=== PATIENT | female | born 1995 | race Caucasian/White ===

== ENCOUNTER 2022-03-25 15:31 | Day surgery (SDC) | payer BC, OTHER ==
[2022-03-25] MEDS ORDERED: hydrALAZINE 20 MG/ML VIAL SLOW IVP PRN (17:23)
[2022-03-25 17:59] VITALS: BMI 42.4
[2022-03-25] MEDS ORDERED: Lactated Ringer's 1,000 ML IV SCH (18:00)
[2022-03-25 18:38] LABS: #Eosinphils 0.1 10x3/uL (0.0-0.5); #Monocytes 0.4 10x3/uL (0.0-1.1); #Neutrophils 9.9 10x3/uL (1.5-8.4); %Basophils 0.2 % (0.0-2.0); %Eosinophils 0.6 % (0.0-6.0); %Lymphocytes 12.4 % (18.0-47.0); %Monocytes 3.4 % (0.0-10.0); %Neutrophils 82.8 % (40.0-75.0); Mean Corpuscular HGB CONC 32.7 g/dL (32.0-36.0); Mean Corpuscular Hemoglobin 27.9 pg (27.0-33.0); Mean Corpuscular Volume 85.5 fl (81.6-98.3); Mean Platelet Volume 10.3 fl (7.4-10.4); Platelet Count 190 10x3/uL (150-450); RBC Distribution Width 14.3 % (11.5-14.5); Red Blood Cell (RBC) Count 3.58 10x6/uL (3.90-5.03); White Blood Cell (WBC) Count 11.9 10x3/uL (3.5-10.5)
[2022-03-25 18:50] LABS: ALT (SGPT) 7 U/L (8-55); AST (SGOT) 10 U/L (5-34); Albumin 3.2 g/dL (3.5-5.0); Alkaline Phosphatase 105 U/L (40-110); Anion Gap 12 mmol/L (10-20); BUN (Urea Nitrogen) 6 mg/dL (7.0-18.7); Bilirubin, Total 0.4 mg/dL (0.2-1.2); Calc. Creatinine Clearance 223 mL/min (70-130); Calcium 8.8 mg/dL (7.8-10.44); Carbon Dioxide 22 mmol/L (22-29); Chloride 107 mmol/L (98-107); Estimated GFR 122; Globulin 2.9 g/dL (2.4-3.5); Glucose 143 mg/dL (70-105); Lipase 15 U/L (8-78); Potassium 3.6 mmol/L (3.5-5.1); Protein, Total 6.1 g/dL (6.0-8.3); Sodium 137 mmol/L (136-145)
[2022-03-25 19:31] LABS: Bilirubin Neg (Negative); Blood, Urine Negative (Negative); CAUTI Indications for Culture Pelvic or flank pain; Clarity Clear (Clear); Glucose, Urine (Dipstick) Normal (Negative); Ketone, Urine Negative (Negative); Leukocyte Negative (Negative); Nitrite Negative (Negative); Protein, Urine (Dipstick) Negative (Neg-Trace); Specific Gravity, Urine 1.005 (1.005-1.030); Urobilinogen Normal mg/dL (Less than 2)
[2022-03-25 19:33] LABS: Urine Culture Reflex No No
[2022-03-25 19:49] LABS: Bacteria/HPF Rare-Few HPF (None Seen); RBC/HPF 0-3 HPF (0-3); Squamous Epithelial 0-3 HPF (0-3); WBC/HPF 0-3 HPF (0-3)
== END 2022-03-25 20:55 | disposition home or self-care (01) ==
LOC: CSHLD/OP 15:31
PROVIDERS: ATTEND Obstetrics & Gynecology
DX: O26.893 Other specified pregnancy related conditions, third trimester (principal); R10.31 Right lower quadrant pain; R10.32 Left lower quadrant pain; O47.03 False labor before 37 completed weeks of gestation, third trimester; O99.891 Other specified diseases and conditions complicating pregnancy; R00.0 Tachycardia, unspecified; D72.829 Elevated white blood cell count, unspecified; Z3A.36 36 weeks gestation of pregnancy
CPT/HCPCS: 80053; 81001; 83690; 85025; 96360; 99283

== ENCOUNTER 2022-04-07 11:09 | Outpatient (CLI) | payer BC, OTHER ==
[2022-04-07 12:13] LABS: Hemoglobin 10.4 g/dL (12.0-15.5); Platelet Count 200 10x3/uL (150-450)
[2022-04-07 12:50] LABS: HBSAg Index 0.12 S/CO (0-0.99); Hep B Surf Ag Non-Reactive S/CO (NonReactive)
[2022-04-07 12:51] LABS: SARS-CoV-2 NAA Rapid Test Not Detected (NotDetected)
[2022-04-07 12:52] LABS: Syphilis Antibody Nonreactive (Nonreactive); Syphilis Antibody Index 0.03 S/CO (<1.00 Non-Reactive)
== END 2022-04-07 11:10 | disposition home or self-care (01) ==
LOC: CSHLAB 11:09
PROVIDERS: ATTEND Obstetrics & Gynecology
DX: Z01.812 Encounter for preprocedural laboratory examination (principal); Z20.822 Contact with and (suspected) exposure to COVID-19
CPT/HCPCS: 85014; 85018; 85049; 86780; 86850; 86900; 86901; 87340; U0002

== ENCOUNTER 2022-04-10 09:40 | Inpatient (IN) | payer OTHER ==
[2022-04-10] MEDS ORDERED: Famotidine/PF 20 mg/2ml Vial SLOW IVP PRN (10:43)
[2022-04-10] MEDS ORDERED: Acetaminophen 500 MG TAB PO PRN (10:43)
[2022-04-10] MEDS ORDERED: Promethazine HCl 25 MG/ML VIAL IM PRN ×2 (10:43→11:09)
[2022-04-10] MEDS ORDERED: Ondansetron PF 4 MG/2 ML Vial IVP PRN ×2 (10:43→11:09)
[2022-04-10] MEDS ORDERED: Bicitra 30 ML UDCUP PO PRN (10:43)
[2022-04-10] MEDS ORDERED: hydrALAZINE 20 MG/ML VIAL SLOW IVP PRN (10:43)
[2022-04-10] MEDS ORDERED: CEFAZOLIN 2 GM in Sodium Chloride 0.9% 100 ML IVPB SCH (10:45)
[2022-04-10 10:58] VITALS: BMI 44.7
[2022-04-10] MEDS ORDERED: Ondansetron HCl/PF 4 MG/2 ML Vial IVP PRN (11:09)
[2022-04-10] MEDS ORDERED: HYDROmorphone 2 MG/ML VIAL SLOW IVP PRN (11:09)
[2022-04-10] MEDS ORDERED: Fentanyl 100 MCG/2 ML VIAL SLOW IVP PRN (11:09)
[2022-04-10] MEDS ORDERED: Naloxone HCl 0.4 mg/ml Vial IVP PRN ×2 (11:09)
[2022-04-10] MEDS ORDERED: Meperidine HCl/PF 25 MG/ML VIAL SLOW IVP PRN (11:09)
[2022-04-10] MEDS ORDERED: diphenhydrAMINE 50 MG/ML VIAL IVP PRN (11:09)
[2022-04-10] MEDS ORDERED: Promethazine HCl 25 MG SUPP PR PRN (11:09)
[2022-04-10] MEDS ORDERED: Moisturizing Cream (Eucerin) 113 GM JAR TOP PRN (11:09)
[2022-04-10] MEDS ORDERED: Naloxone HCl 0.4 mg/ml Vial IV PRN (11:09)
[2022-04-10] MEDS ORDERED: Phenylephrine 10 MG/ML VIAL ONE (11:14)
[2022-04-10] MEDS ORDERED: Oxytocin 10 UNITS/ML VIAL ONE ×2 (11:14→12:58)
[2022-04-10] MEDS ORDERED: Fentanyl 100 MCG/2 ML VIAL ONE (11:14)
[2022-04-10] MEDS ORDERED: Ondansetron PF 4 MG/2 ML Vial ONE (11:14)
[2022-04-10] MEDS ORDERED: Morphine PF 10 MG/10 ML VIAL ONE (11:14)
[2022-04-10] MEDS ORDERED: Dexamethasone 4 mg/ml Vial ONE (11:14)
[2022-04-10] MEDS ORDERED: Ketorolac Tromethamine 30 MG/ML VIAL IVP SCH (11:15)
[2022-04-10] MEDS ORDERED: Communication Order-Pharmacy FS SCH (11:15)
[2022-04-10] MEDS ORDERED: Lidocaine 1% (PF) 30 ML VIAL ONE (12:54)
[2022-04-10] MEDS ORDERED: Methylergonovine 0.2 MG/ML VIAL IM PRN (16:21)
[2022-04-10] MEDS ORDERED: diphenhydrAMINE 25 MG CAP PO PRN (16:21)
[2022-04-10] MEDS ORDERED: NS w/ Oxytocin 30 units 500 ML IV SCH (16:21)
[2022-04-10] MEDS ORDERED: Boostrix 0.5 ML (Tdap) VIAL (>/=7 yrs of age) IM ONE (16:21)
[2022-04-10] MEDS ORDERED: Bisacodyl 10 MG SUPP PR PRN (16:21)
[2022-04-10] MEDS ORDERED: Acetaminophen 325 MG TAB PO PRN (16:21)
[2022-04-10] MEDS ORDERED: Misoprostol 200 MCG TAB PR PRN (16:21)
[2022-04-10] MEDS: Ketorolac Tromethamine 30 MG/ML VIAL IVP PRN (17:09)
[2022-04-10] MEDS: Docusate 100 MG CAP PO SCH (21:32)
[2022-04-11] MEDS: Ketorolac Tromethamine 30 MG/ML VIAL IVP PRN ×2 (00:23→08:13)
[2022-04-11 05:07] LABS: Hemoglobin 8.7 g/dL (12.0-15.5); Mean Corpuscular HGB CONC 32.3 g/dL (32.0-36.0); Mean Corpuscular Hemoglobin 26.6 pg (27.0-33.0); Mean Corpuscular Volume 82.3 fl (81.6-98.3); Mean Platelet Volume 10.3 fl (7.4-10.4); Platelet Count 171 10x3/uL (150-450); RBC Distribution Width 14.5 % (11.5-14.5); Red Blood Cell (RBC) Count 3.27 10x6/uL (3.90-5.03); White Blood Cell (WBC) Count 13.1 10x3/uL (3.5-10.5)
[2022-04-11] MEDS: HYDROcodone/Acetaminophen 5/325 mg Tablet PO PRN ×4 (08:12→21:41)
[2022-04-11] MEDS: Docusate 100 MG CAP PO SCH ×2 (08:12→21:41)
[2022-04-11] MEDS: Prenatal Vitamin 1 TAB PO SCH (08:13)
[2022-04-11] MEDS: Ferrous Sulfate 325 MG TAB PO SCH ×2 (08:13→21:41)
[2022-04-11] MEDS: Ibuprofen 800 MG TAB PO SCH ×2 (13:56→22:48)
[2022-04-11] MEDS: Simethicone Chewable 80 MG TAB PO PRN (21:41)
[2022-04-12] MEDS: Ibuprofen 800 MG TAB PO SCH ×2 (05:04→14:54)
[2022-04-12] MEDS: HYDROcodone/Acetaminophen 5/325 mg Tablet PO PRN (08:26)
[2022-04-12] MEDS: Ferrous Sulfate 325 MG TAB PO SCH (08:30)
[2022-04-12] MEDS: Docusate 100 MG CAP PO SCH (08:30)
[2022-04-12] MEDS: Simethicone Chewable 80 MG TAB PO PRN (08:30)
[2022-04-12] MEDS: Prenatal Vitamin 1 TAB PO SCH (08:31)
[2022-04-12 11:41] VITALS: BP 136/88; TEMP 98
== END 2022-04-12 15:30 | disposition home or self-care (01) | DRG 787 ==
LOC: CSHLD 09:40 → CSHPP 16:05
PROVIDERS: ADMIT Obstetrics & Gynecology; ATTEND Obstetrics & Gynecology
PROC: 10D00Z1 Extraction of Products of Conception, Low, Open Approach (ICD-10-PCS; principal; 2022-04-10)
DX: O34.211 Maternal care for low transverse scar from previous cesarean delivery (principal); O10.92 Unspecified pre-existing hypertension complicating childbirth; Z3A.38 38 weeks gestation of pregnancy; Z37.0 Single live birth
CPT/HCPCS: 36415; 51702; 85027; J1100; J1885; J2001; J2274; J2370; J2405; J2590; J3010; J3490; S0028

== ENCOUNTER 2023-03-07 08:38 | Emergency (ER) | payer OTHER ==
[2023-03-07] MEDS ORDERED: Ketorolac Tromethamine 30 MG/ML VIAL ONE (09:12)
[2023-03-07] MEDS ORDERED: Ondansetron PF 4 MG/2 ML Vial ONE (09:12)
[2023-03-07 09:15] LABS: #Eosinphils 0.1 10x3/uL (0.0-0.5); #Monocytes 0.5 10x3/uL (0.0-1.1); #Neutrophils 6.4 10x3/uL (1.5-8.4); %Basophils 0.2 % (0.0-2.0); %Eosinophils 0.6 % (0.0-6.0); %Lymphocytes 13.7 % (18.0-47.0); %Monocytes 6.2 % (0.0-10.0); %Neutrophils 79.1 % (40.0-75.0); Hematocrit 35.2 % (34.9-44.5); Hemoglobin 11.2 g/dL (12.0-15.5); Mean Corpuscular HGB CONC 31.8 g/dL (32.0-36.0); Mean Corpuscular Hemoglobin 26.4 pg (27.0-33.0); Mean Platelet Volume 10.3 fl (7.4-10.4); Platelet Count 242 10x3/uL (150-450); RBC Distribution Width 14.1 % (11.5-14.5); Red Blood Cell (RBC) Count 4.24 10x6/uL (3.90-5.03); White Blood Cell (WBC) Count 8.1 10x3/uL (3.5-10.5)
[2023-03-07 09:22] LABS: Bilirubin Neg (Negative); Blood, Urine Negative (Negative); Glucose, Urine (Dipstick) Normal (Negative); Ketone, Urine Negative (Negative); Leukocyte Negative (Negative); Nitrite Negative (Negative); Protein, Urine (Dipstick) Negative (Neg-Trace); Urobilinogen Normal mg/dL (Less than 2)
[2023-03-07 09:25] LABS: Clarity Clear (Clear); Pregnancy Test - Urine (BHCG) Negative (Negative); Pregu Control Background? CLEAR/WHITE (CLR/WHITE); Pregu Control Bar Appear? YES (CONTROL BAR)
[2023-03-07 09:31] LABS: Bacteria/HPF None Seen HPF (None Seen); CAUTI Indications for Culture Pelvic or flank pain; RBC/HPF None Seen HPF (0-3); Squamous Epithelial 0-3 HPF (0-3); WBC/HPF None Seen HPF (0-3)
[2023-03-07 09:32] LABS: Urine Culture Reflex No No
[2023-03-07 10:16] LABS: ALT (SGPT) 13 U/L (8-55); AST (SGOT) 14 U/L (5-34); Albumin 4.1 g/dL (3.5-5.0); Alkaline Phosphatase 64 U/L (40-110); Anion Gap 13 mmol/L (10-20); BUN (Urea Nitrogen) 8 mg/dL (7.0-18.7); Bilirubin, Total 0.5 mg/dL (0.2-1.2); Calc. Creatinine Clearance 0 mL/min (70-130); Calcium 8.9 mg/dL (7.8-10.44); Carbon Dioxide 21 mmol/L (22-29); Chloride 107 mmol/L (98-107); Estimated GFR 78; Globulin 2.8 g/dL (2.4-3.5); Glucose 107 mg/dL (70-105); Lipase 12 U/L (8-78); Magnesium 1.9 mg/dL (1.6-2.6); Protein, Total 6.9 g/dL (6.0-8.3); Sodium 137 mmol/L (136-145)
== END 2023-03-07 11:25 | disposition home or self-care (01) ==
LOC: CSHERS 08:38
DX: N13.2 Hydronephrosis with renal and ureteral calculous obstruction (principal); F17.290 Nicotine dependence, other tobacco product, uncomplicated
CPT/HCPCS: 74176; 80053; 81001; 81025; 83690; 83735; 85025; 96361; 96374; 96375; J1885; J2405

== ENCOUNTER 2025-02-12 11:11 | Emergency (ER) | payer SELFPAY ==
[2025-02-12] MEDS ORDERED: Ketorolac Tromethamine 30 MG (1 mL) VIAL ONE (11:41)
== END 2025-02-12 12:24 | disposition home or self-care (01) ==
LOC: CSHERS 11:11
DX: S62.322A Displaced fracture of shaft of third metacarpal bone, right hand, initial encounter for closed fracture (principal); S60.021A Contusion of right index finger without damage to nail, initial encounter; S60.041A Contusion of right ring finger without damage to nail, initial encounter; F17.290 Nicotine dependence, other tobacco product, uncomplicated; W22.09XA Striking against other stationary object, initial encounter
CPT/HCPCS: 26600; 96372; J1885